=== PATIENT | female | born 1955 | race Caucasian/White ===

== ENCOUNTER 2018-11-17 05:55 | Emergency (ER) | payer MEDICAID ==
[~2018-11-17] VITALS: Ht 172.7 cm; Wt 94.8 kg
[2018-11-17 06:05] VITALS: BP_SYST 151
[2018-11-17] MEDS ORDERED: NACL 0.9% 1,000 ML IV ONE (06:15)
[2018-11-17] MEDS ORDERED: KETOROLAC TROMETHAMINE 30 MG VIAL IVP ONE (06:30)
[2018-11-17] MEDS ORDERED: ONDANSETRON HCL 4 MG/2 ML VIAL IVP ONE (06:30)
[2018-11-17 07:11] LABS: CALCIUM 9.7 mg/dL (8.4-11.0); CREATININE 0.9 mg/dL (0.55-1.30); POTASSIUM 3.4 mmol/L (3.5-5.1)
[2018-11-17 07:15] LABS: EOSINOPHILS % (AUTO) 0.8 % (0.0-4.0); HEMATOCRIT 43.4 % (36-48); HEMOGLOBIN 14.9 g/dL (12.0-16.0); LYMPHOCYTES % (AUTO) 30.6 % (20.5-51.5); MEAN CORPUSCULAR HEMOGLOBIN 30 pg (27-31); MEAN CORPUSCULAR HGB CONC 34 % (32-36); MEAN CORPUSCULAR VOLUME 86 fL (79.0-98.0); PLATELET COUNT (AUTO) 174 K/uL (130-430); RED BLOOD CELL COUNT(AUTO) 5.03 MIL/uL (4.2-6.2); RED CELL DISTRIBUTION WIDTH 14.5 % (9.0-15.0); WHITE BLOOD COUNT (AUTO) 5.4 K/uL (4.8-10.8)
[2018-11-17 07:16] LABS: BASOPHILS % (AUTO) 0.6 % (0.0-2.0); LYMPHOCYTES # (AUTO) 1.7 K/uL (1.0-5.5); MONOCYTES # (AUTO) 0.5 K/uL (0.0-1.0); NEUTROPHILS # (AUTO) 3.1 K/uL (1.8-7.7)
[2018-11-17 07:22] LABS: ALBUMIN 3.9 g/dL (3.4-4.8); TOTAL BILIRUBIN 1.8 mg/dL (0.0-1.0)
[2018-11-17 08:00] VITALS: BP_SYST 148
== END 2018-11-17 08:00 | disposition home or self-care (01) ==
LOC: SED 05:55
DX: K59.00 Constipation, unspecified (principal); E11.9 Type 2 diabetes mellitus without complications; I10 Essential (primary) hypertension
CPT/HCPCS: 36415; 74018; 80053; 85025; 96361; 96374; 96375; 99284; J1885; J2405; J7030

== ENCOUNTER 2018-11-19 09:01 | Emergency (ER) | payer MEDICAID ==
[~2018-11-19] VITALS: Ht 172.7 cm; Wt 92.5 kg
[2018-11-19 09:05] VITALS: BP_SYST 138
[2018-11-19] MEDS ORDERED: NACL 0.9% 1,000 ML IV ONE (09:45)
[2018-11-19] MEDS ORDERED: MINERAL OIL 133 ML ENEMA RC ONE (10:00)
[2018-11-19 10:03] LABS: HEMATOCRIT 44.1 % (36-48); MEAN CORPUSCULAR HEMOGLOBIN 29 pg (27-31); MEAN CORPUSCULAR HGB CONC 34 % (32-36); MEAN CORPUSCULAR VOLUME 86 fL (79.0-98.0); RED BLOOD CELL COUNT(AUTO) 5.13 MIL/uL (4.2-6.2)
[2018-11-19 10:04] LABS: BASOPHILS % (AUTO) 0.8 % (0.0-2.0); EOSINOPHILS % (AUTO) 0.4 % (0.0-4.0); LYMPHOCYTES % (AUTO) 16.6 % (20.5-51.5); MONOCYTES # (AUTO) 0.5 K/uL (0.0-1.0); MONOCYTES % (AUTO) 9.1 % (1.7-9.3); NEUTROPHILS # (AUTO) 4.4 K/uL (1.8-7.7); NEUTROPHILS % (AUTO) 73.1 % (40.0-70.0); PLATELET COUNT (AUTO) 180 K/uL (130-430); RED CELL DISTRIBUTION WIDTH 14.1 % (9.0-15.0)
[2018-11-19 10:09] LABS: CALCIUM 9.6 mg/dL (8.4-11.0); CREATININE 0.84 mg/dL (0.55-1.30); POTASSIUM 3.3 mmol/L (3.5-5.1)
[2018-11-19 10:14] LABS: ALBUMIN 3.7 g/dL (3.4-4.8)
[2018-11-19 10:37] LABS: BILIRUBIN,URINE 2+ (NEGATIVE); BLOOD, URINE 3+ (NEGATIVE); CLARITY/URINE CLEAR (CLEAR); COLOR,URINE AMBER (YELLOW); GLUCOSE,URINE NEGATIVE (NEGATIVE); KETONES,URINE 2+ (NEGATIVE); LEUKOCYTE ESTERASE ,URINE NEGATIVE (NEGATIVE); NITRITE, URINE NEGATIVE (NEGATIVE); PH,URINE 5.5 (5.0-8.0); PROTEIN URINE 1+ (NEGATIVE)
[2018-11-19 11:04] LABS: BACTERIA,URINE FEW /HPF (None Seen); RBC,URINE 20-50 /HPF (0-3); WBC,URINE 0-3 /HPF (0-3)
[2018-11-19 11:09] LABS: MUCUS,URINE 1+ /LPF (None Seen)
[2018-11-19] MEDS ORDERED: MAGNESIUM CITRATE 300 ML ORAL SOLUTION PO ONE (12:15)
[2018-11-19 12:36] VITALS: BP_SYST 119
== END 2018-11-19 12:35 | disposition home or self-care (01) ==
LOC: SED 09:01
DX: K59.00 Constipation, unspecified (principal); E11.9 Type 2 diabetes mellitus without complications; I10 Essential (primary) hypertension
CPT/HCPCS: 36415; 74018; 74176; 80053; 81000; 82962; 85025; 99284; J7030

== ENCOUNTER 2018-12-04 19:48 | Emergency (ER) | payer MEDICAID ==
[~2018-12-04] VITALS: Ht 172.7 cm; Wt 85.7 kg
[2018-12-04 19:55] VITALS: BP_SYST 142
[2018-12-04 21:31] LABS: BASOPHILS # (AUTO) 0.1 K/uL (0.0-0.2); EOSINOPHILS % (AUTO) 0.6 % (0.0-4.0); HEMATOCRIT 42.4 % (36-48); HEMOGLOBIN 14.6 g/dL (12.0-16.0); LYMPHOCYTES # (AUTO) 2.2 K/uL (1.0-5.5); LYMPHOCYTES % (AUTO) 33.1 % (20.5-51.5); MEAN CORPUSCULAR HEMOGLOBIN 30 pg (27-31); MEAN CORPUSCULAR HGB CONC 35 % (32-36); MEAN CORPUSCULAR VOLUME 87 fL (79.0-98.0); MONOCYTES # (AUTO) 0.8 K/uL (0.0-1.0); MONOCYTES % (AUTO) 11.8 % (1.7-9.3); NEUTROPHILS # (AUTO) 3.6 K/uL (1.8-7.7); NEUTROPHILS % (AUTO) 53.5 % (40.0-70.0); PLATELET COUNT (AUTO) 183 K/uL (130-430); RED BLOOD CELL COUNT(AUTO) 4.89 MIL/uL (4.2-6.2); WHITE BLOOD COUNT (AUTO) 6.8 K/uL (4.8-10.8)
[2018-12-04] MEDS ORDERED: MAGNESIUM CITRATE 300 ML ORAL SOLUTION PO ONE (21:45)
[2018-12-04] MEDS ORDERED: MINERAL OIL 133 ML ENEMA RC ONE (21:45)
[2018-12-04 21:53] LABS: CALCIUM 9.4 mg/dL (8.4-11.0); CREATININE 0.75 mg/dL (0.55-1.30); POTASSIUM 3.6 mmol/L (3.5-5.1)
[2018-12-04 21:59] LABS: ALBUMIN 3.7 g/dL (3.4-4.8); TOTAL BILIRUBIN 1.3 mg/dL (0.0-1.0)
[2018-12-04] MEDS ORDERED: NACL 0.9% 1,000 ML IV ONE (23:30)
[2018-12-05 00:38] VITALS: BP_SYST 138
== END 2018-12-05 00:38 | disposition home or self-care (01) ==
LOC: SED 19:48
DX: K59.00 Constipation, unspecified (principal); E11.9 Type 2 diabetes mellitus without complications; I10 Essential (primary) hypertension
CPT/HCPCS: 36415; 80053; 83690; 85025; 99283; J7030

== ENCOUNTER 2019-01-14 13:37 | Emergency (ER) | payer MEDICAID ==
[~2019-01-14] VITALS: Ht 172.7 cm; Wt 90.7 kg
[2019-01-14 13:37] VITALS: BP_SYST 128
[2019-01-14] MEDS ORDERED: NACL 0.9% 1,000 ML IV ONE (14:15)
[2019-01-14 15:17] LABS: BASOPHILS % (AUTO) 0.7 % (0.0-2.0); EOSINOPHILS % (AUTO) 0.1 % (0.0-4.0); HEMATOCRIT 46.4 % (36-48); HEMOGLOBIN 15.8 g/dL (12.0-16.0); LYMPHOCYTES % (AUTO) 16.2 % (20.5-51.5); MEAN CORPUSCULAR HEMOGLOBIN 30 pg (27-31); MEAN CORPUSCULAR HGB CONC 34 % (32-36); MEAN CORPUSCULAR VOLUME 89 fL (79.0-98.0); MONOCYTES # (AUTO) 0.5 K/uL (0.0-1.0); MONOCYTES % (AUTO) 8.6 % (1.7-9.3); NEUTROPHILS # (AUTO) 4.5 K/uL (1.8-7.7); NEUTROPHILS % (AUTO) 74.4 % (40.0-70.0); PLATELET COUNT (AUTO) 189 K/uL (130-430); RED BLOOD CELL COUNT(AUTO) 5.19 MIL/uL (4.2-6.2); RED CELL DISTRIBUTION WIDTH 15.1 % (9.0-15.0)
[2019-01-14 15:32] LABS: CALCIUM 10.1 mg/dL (8.4-11.0); CREATININE 1.41 mg/dL (0.55-1.30); POTASSIUM 3.1 mmol/L (3.5-5.1)
[2019-01-14 15:37] LABS: ALBUMIN 3.5 g/dL (3.4-4.8); TOTAL BILIRUBIN 2.1 mg/dL (0.0-1.0)
[2019-01-14] MEDS ORDERED: POTASSIUM CHLORIDE 10 MEQ TAB.PRT.SR PO ONE (15:45)
[2019-01-14 15:58] LABS: BILIRUBIN,URINE 2+ (NEGATIVE); BLOOD, URINE 3+ (NEGATIVE); CLARITY/URINE HAZY (CLEAR); COLOR,URINE YELLOW (YELLOW); GLUCOSE,URINE NEGATIVE (NEGATIVE); KETONES,URINE 1+ (NEGATIVE); LEUKOCYTE ESTERASE ,URINE 2+ (NEGATIVE); NITRITE, URINE NEGATIVE (NEGATIVE); PROTEIN URINE 1+ (NEGATIVE)
[2019-01-14] MEDS ORDERED: MAGNESIUM CITRATE 300 ML ORAL SOLUTION PO ONE (16:00)
[2019-01-14] MEDS ORDERED: PANTOPRAZOLE SODIUM 40 MG/VIAL (PROTONIX) IVP ONE (16:00)
[2019-01-14] MEDS ORDERED: LEVOFLOXACIN 500 MG/D5W 100 ML IV ONE (16:15)
[2019-01-14 16:24] LABS: BACTERIA,URINE MODERATE /HPF (None Seen); RBC,URINE 20-50 /HPF (0-3)
[2019-01-14 17:09] VITALS: BP_SYST 131
== END 2019-01-14 17:09 | disposition home or self-care (01) ==
LOC: SED 13:37
DX: K29.70 Gastritis, unspecified, without bleeding (principal); N39.0 Urinary tract infection, site not specified; K59.00 Constipation, unspecified; E11.9 Type 2 diabetes mellitus without complications; I10 Essential (primary) hypertension; Z90.49 Acquired absence of other specified parts of digestive tract
CPT/HCPCS: 36415; 74021; 80053; 81000; 85025; 87086; 87186; 96361; 96365; 96375; 99284; C9113; J1956; J7030

== ENCOUNTER 2019-02-09 09:29 | Emergency (ER) | payer MEDICAID ==
[~2019-02-09] VITALS: Ht 172.7 cm; Wt 77.1 kg
[2019-02-09 09:30] VITALS: BP_SYST 124
--- NOTE | 2019-02-09 09:35 | NUR ---
Note thomas in EDM - 02/09/19 at 1001 by CHET Patient is awake, alert, and oriented x4. She is complaining of productive cough since this morning. Patient called earlier stating that she was going in to a coma and she had a poc glucose reading of 19, paramedics did one in the field showing 119 blood sugar.
--- NOTE | 2019-02-09 09:36 | NUR ---
Arrived via [facility] ambulance with C/O cough, burning in throat, constipation. Patient called 911 due to BS 19 on accucheck. EMS had BS 113. Patient is slow to repond though responses are appropriete. Placed in room 2. Placed on director of cardiac cath lab, blood pressure machine and pulse oximeter. To gown for exam. Side rails up. Report given to Yasir THOMASON.
--- NOTE | 2019-02-09 09:45 | NUR ---
ER Dr. Morgan at bedside examining patient.
[2019-02-09] MEDS ORDERED: NACL 0.9% 1,000 ML IV ONE ×2 (10:00→11:30)
[2019-02-09] MEDS ORDERED: KETOROLAC TROMETHAMINE 30 MG VIAL IVP ONE (10:00)
[2019-02-09 10:20] LABS: CALCIUM 9.9 mg/dL (8.4-11.0); CREATININE 1.09 mg/dL (0.55-1.30)
--- NOTE | 2019-02-09 10:22 | NUR ---
# 16 FR Cruz catheter with use of sterile technique. Immediate return of 10 cc yellow urine noted. Bedside drainage bag placed below level of bladder. Urine sample unable to be collected at this time, Dr. Morgan made aware. Pt tolerated procedure well. Patient arrived with cruz in place, changed due to standard of practice prior to admission. Patient unable to toilet self.
[2019-02-09 10:23] LABS: BASOPHILS # (AUTO) 0.1 K/uL (0.0-0.2); BASOPHILS % (AUTO) 1.1 % (0.0-2.0); EOSINOPHILS % (AUTO) 0.2 % (0.0-4.0); HEMATOCRIT 45.4 % (36-48); HEMOGLOBIN 15.3 g/dL (12.0-16.0); LYMPHOCYTES # (AUTO) 1.2 K/uL (1.0-5.5); LYMPHOCYTES % (AUTO) 21.2 % (20.5-51.5); MEAN CORPUSCULAR HEMOGLOBIN 31 pg (27-31); MEAN CORPUSCULAR HGB CONC 34 % (32-36); MEAN CORPUSCULAR VOLUME 92 fL (79.0-98.0); MONOCYTES # (AUTO) 0.5 K/uL (0.0-1.0); MONOCYTES % (AUTO) 8.7 % (1.7-9.3); NEUTROPHILS # (AUTO) 3.9 K/uL (1.8-7.7); NEUTROPHILS % (AUTO) 68.8 % (40.0-70.0); PLATELET COUNT (AUTO) 257 K/uL (130-430); RED BLOOD CELL COUNT(AUTO) 4.95 MIL/uL (4.2-6.2); RED CELL DISTRIBUTION WIDTH 14.7 % (9.0-15.0); WHITE BLOOD COUNT (AUTO) 5.6 K/uL (4.8-10.8)
[2019-02-09 10:25] LABS: ALBUMIN 3.6 g/dL (3.4-4.8); TOTAL BILIRUBIN 1.9 mg/dL (0.0-1.0)
[2019-02-09 10:39] LABS: POTASSIUM 3.3 mmol/L (3.5-5.1)
[2019-02-09] MEDS ORDERED: RAMI10CA32 PO (10:49)
[2019-02-09] MEDS ORDERED: INSU100I26 SQ (10:49)
[2019-02-09] MEDS ORDERED: OMEP40CA33 PO (10:49)
--- NOTE | 2019-02-09 10:49 | NUR ---
Medication reconciliation completed with information provided by [facility] pharmacy. Any prior medication reconciliation on file was reviewed and corrected.
[2019-02-09 12:24] LABS: BILIRUBIN,URINE 1+ (NEGATIVE); CLARITY/URINE CLEAR (CLEAR); COLOR,URINE YELLOW (YELLOW); GLUCOSE,URINE NEGATIVE (NEGATIVE); KETONES,URINE 3+ (NEGATIVE); LEUKOCYTE ESTERASE ,URINE NEGATIVE (NEGATIVE); NITRITE, URINE NEGATIVE (NEGATIVE); PH,URINE 5.5 (5.0-8.0); PROTEIN URINE TRACE (NEGATIVE); UROBILINOGEN,URINE 0.2 (0.2-1.0)
[2019-02-09 12:26] LABS: BLOOD, URINE TRACE (NEGATIVE)
[2019-02-09 12:35] LABS: BACTERIA,URINE FEW /HPF (None Seen); COARSE GRANULAR CASTS,URINE 0-10 /LPF (None Seen); FINE GRANULAR CASTS,URINE 0-10 /LPF (None Seen); RBC,URINE 0-3 /HPF (0-3)
[2019-02-09 12:36] LABS: MUCUS,URINE 1+ /LPF (None Seen)
--- NOTE | 2019-02-09 12:41 | NUR ---
Dr. Morgan at bedside talking to patient.
[2019-02-09 12:54] VITALS: BP_SYST 148
--- NOTE | 2019-02-09 12:55 | NUR ---
Patient given written and verbal discharge instructions and verbalizes understanding. ER MD discussed with patient the results and treatment provided. Patient in stable condition. ID arm band removed. IV catheter removed intact and dressing applied, no active bleeding. Rx of dulcolax, miralax given. Patient educated on pain management and to follow up with PMD. Pain Scale 0/10. Opportunity for questions provided and answered. Medication side effect fact sheet provided.
== END 2019-02-09 12:54 | disposition home or self-care (01) ==
LOC: SED 09:29
DX: E86.0 Dehydration (principal); K59.00 Constipation, unspecified; E11.9 Type 2 diabetes mellitus without complications; I10 Essential (primary) hypertension; Z79.899 Other long term (current) drug therapy
CPT/HCPCS: 36415; 51702; 74018; 80053; 81000; 82140; 83605; 83690; 84484; 85025; 87086; 93005; 96361; 96374; 99284; J1885; J7030

== ENCOUNTER 2019-02-12 10:45 | Inpatient (IN) | payer MEDICAID ==
[~2019-02-12] VITALS: Ht 175.3 cm; Wt 74.1 kg
[2019-02-12 10:45] VITALS: BP_SYST 114
[~2019-02-12 10:45] MED LIST: INSU100I26 SQ; OMEP40CA33 PO; RAMI10CA32 PO
[2019-02-12] MEDS ORDERED: NACL 0.9% 1,000 ML IV ONE (11:11)
[2019-02-12 11:34] LABS: BASOPHILS % (AUTO) 0.7 % (0.0-2.0); EOSINOPHILS % (AUTO) 0.1 % (0.0-4.0); HEMATOCRIT 43.7 % (36-48); HEMOGLOBIN 14.7 g/dL (12.0-16.0); LYMPHOCYTES # (AUTO) 1.3 K/uL (1.0-5.5); LYMPHOCYTES % (AUTO) 26.8 % (20.5-51.5); MEAN CORPUSCULAR HEMOGLOBIN 31 pg (27-31); MEAN CORPUSCULAR HGB CONC 34 % (32-36); MEAN CORPUSCULAR VOLUME 91 fL (79.0-98.0); MONOCYTES # (AUTO) 0.4 K/uL (0.0-1.0); MONOCYTES % (AUTO) 9.1 % (1.7-9.3); NEUTROPHILS # (AUTO) 3.1 K/uL (1.8-7.7); NEUTROPHILS % (AUTO) 63.3 % (40.0-70.0); PLATELET COUNT (AUTO) 236 K/uL (130-430); RED CELL DISTRIBUTION WIDTH 14.9 % (9.0-15.0); WHITE BLOOD COUNT (AUTO) 4.8 K/uL (4.8-10.8)
[2019-02-12 11:43] LABS: CALCIUM 9.7 mg/dL (8.4-11.0); CREATININE 1.03 mg/dL (0.55-1.30)
[2019-02-12 11:48] LABS: ALBUMIN 3.1 g/dL (3.4-4.8); TOTAL BILIRUBIN 1.6 mg/dL (0.0-1.0)
[2019-02-12 12:00] LABS: POTASSIUM 2.7 mmol/L (3.5-5.1)
[2019-02-12] MEDS ORDERED: KCL 20 mEq in 100 mL (PREMIX) 100 ML IV ONE ×2 (13:30→22:15)
[2019-02-12 13:37] LABS: BILIRUBIN,URINE 2+ (NEGATIVE); BLOOD, URINE 3+ (NEGATIVE); CLARITY/URINE CLEAR (CLEAR); COLOR,URINE YELLOW (YELLOW); GLUCOSE,URINE NEGATIVE (NEGATIVE); KETONES,URINE 3+ (NEGATIVE); LEUKOCYTE ESTERASE ,URINE NEGATIVE (NEGATIVE); NITRITE, URINE NEGATIVE (NEGATIVE); PROTEIN URINE 1+ (NEGATIVE)
[2019-02-12 13:51] LABS: BACTERIA,URINE FEW /HPF (None Seen); WBC,URINE 0-3 /HPF (0-3)
[2019-02-12 13:52] LABS: FINE GRANULAR CASTS,URINE 0-10 /LPF (None Seen); HYALINE CASTS, URINE 0-10 /LPF (None Seen); MUCUS,URINE 1+ /LPF (None Seen)
[2019-02-12] MEDS ORDERED: ONDANSETRON HCL 4 MG/2 ML VIAL IVP ONE (15:00)
[2019-02-12 15:30] LABS: CALCIUM 8.6 mg/dL (8.4-11.0); CREATININE 0.91 mg/dL (0.55-1.30)
[2019-02-12 15:36] LABS: ALBUMIN 2.8 g/dL (3.4-4.8); TOTAL BILIRUBIN 1.3 mg/dL (0.0-1.0)
[2019-02-12] MEDS ORDERED: POTASSIUM CHLORIDE 20 MEQ/PKT PACKET PO ONE (18:00)
[2019-02-12] MEDS ORDERED: MAG HYDROX/AL HYDROX/SIMETH 30 ML, DICYCLOMINE HCL 20 MG, LIDOCAINE VISCOUS 2% 15ML (PO... PO ONE ×3 (18:00)
[2019-02-12 18:50] VITALS: BP_SYST 137
[2019-02-12] MEDS ORDERED: NACL 0.9% 1,000 ML IV SCH (18:50)
[2019-02-12] MEDS ORDERED: ALBUTEROL SULFATE 0.083% 2.5 MG/3 ML VIAL.NEB INH PRN (19:00)
[2019-02-12] MEDS ORDERED: HYDROcodone/ACETAMIN 5-325 MG TAB (NORCO/ VICODIN) PO PRN (19:00)
[2019-02-12] MEDS ORDERED: INSULIN ASPART 100 UNITS/ML, 10 ML VIAL (NovoLOG) SUBCUT PRN (19:00)
[2019-02-12] MEDS ORDERED: HYDROcodone/ACETAMIN 10-325 MG TAB PO PRN (19:00)
[2019-02-12] MEDS ORDERED: ONDANSETRON HCL 4 MG/2 ML VIAL IVP PRN (19:00)
[2019-02-12] MEDS ORDERED: POLYETHYLENE GLYCOL 3350, 17 GM/ POWD.PACK PO ONE (19:15)
[2019-02-12] MEDS ORDERED: DEXTROSE 50%-WATER 50 ML DISP.SYRIN IVP PRN (19:30)
[2019-02-12] MEDS ORDERED: GLUCOSE 15 GM GEL (in 37.5 GM TUBE) PO PRN (19:30)
[2019-02-12] MEDS ORDERED: D5W 1,000 ML IV PRN (19:30)
[2019-02-12 20:00] VITALS: BP_SYST 152
[2019-02-12 20:35] VITALS: BP_SYST 152
[2019-02-12] MEDS: cefTRIAXone 1 GM IVPB PREMIX 50 ML IV SCH (20:37)
[2019-02-12] MEDS: BISACODYL 10 MG/SUPPOSITORY RC PRN (23:36)
[2019-02-12] MEDS ORDERED: NS IV ONE (23:37)
[2019-02-12] MEDS ORDERED: KCL IV ONE (23:37)
[2019-02-12] MEDS ORDERED: KCL 20 mEq in D5NS 1000 mL 1,000 ML IV ONE (23:41)
[2019-02-13 01:36] VITALS: BP_SYST 159
[2019-02-13] MEDS: KCL 20 mEq in D5NS 1000 mL 1,000 ML IV SCH ×3 (03:32→17:12)
[2019-02-13] MEDS: INSULIN LISPRO SLIDING SCALE 100 UNITS/ML VIAL (humaLOG) SUBCUT PRN (05:38)
[2019-02-13 07:02] LABS: BASOPHILS % (AUTO) 0.7 % (0.0-2.0); EOSINOPHILS % (AUTO) 0.3 % (0.0-4.0); HEMATOCRIT 41.8 % (36-48); HEMOGLOBIN 14.1 g/dL (12.0-16.0); LYMPHOCYTES # (AUTO) 1.4 K/uL (1.0-5.5); LYMPHOCYTES % (AUTO) 32.8 % (20.5-51.5); MEAN CORPUSCULAR HEMOGLOBIN 31 pg (27-31); MEAN CORPUSCULAR HGB CONC 34 % (32-36); MEAN CORPUSCULAR VOLUME 91 fL (79.0-98.0); MONOCYTES # (AUTO) 0.5 K/uL (0.0-1.0); MONOCYTES % (AUTO) 10.5 % (1.7-9.3); NEUTROPHILS # (AUTO) 2.5 K/uL (1.8-7.7); NEUTROPHILS % (AUTO) 55.7 % (40.0-70.0); PLATELET COUNT (AUTO) 214 K/uL (130-430); RED CELL DISTRIBUTION WIDTH 15.2 % (9.0-15.0); WHITE BLOOD COUNT (AUTO) 4.4 K/uL (4.8-10.8)
[2019-02-13 07:09] LABS: CALCIUM 8.7 mg/dL (8.4-11.0); CREATININE 0.87 mg/dL (0.55-1.30)
[2019-02-13 07:18] LABS: ALBUMIN 2.9 g/dL (3.4-4.8); TOTAL BILIRUBIN 1.3 mg/dL (0.0-1.0)
[2019-02-13] MEDS: POTASSIUM CHLORIDE 20 MEQ TAB.PRT.SR PO SCH ×2 (08:15→11:45)
[2019-02-13 08:43] VITALS: BP_SYST 162
[2019-02-13] MEDS: LISINOPRIL 20 MG TABLET PO SCH (08:45)
[2019-02-13] MEDS: OMEPRAZOLE 20 MG CAPSULE.DR (PriLOSEC) PO SCH (08:50)
[2019-02-13] MEDS ORDERED: RAMIPRIL 5 MG CAPSULE PO SCH (09:00)
[2019-02-13] MEDS ORDERED: POLYETHYLENE GLYCOL 3350, 17 GM/ POWD.PACK PO SCH (09:00)
[2019-02-13 12:20] VITALS: BP_SYST 145
[2019-02-13 16:33] VITALS: BP_SYST 164
[2019-02-13 19:00] VITALS: BP_SYST 133
[2019-02-13 20:00] VITALS: BP_SYST 133
[2019-02-13] MEDS: cefTRIAXone 1 GM IVPB PREMIX 50 ML IV SCH (20:21)
[2019-02-13] MEDS ORDERED: MORPHINE 2 MG/ML INJ. SYRINGE IVP ONE (21:15)
[2019-02-13] MEDS: METOCLOPRAMIDE HCL 10 MG/2 ML VIAL IVP PRN (22:33)
[2019-02-14 01:15] VITALS: BP_SYST 152
[2019-02-14] MEDS: METOCLOPRAMIDE HCL 10 MG/2 ML VIAL IVP PRN ×2 (04:24→22:12)
[2019-02-14] MEDS: KCL 20 mEq in D5NS 1000 mL 1,000 ML IV SCH ×2 (04:24→17:05)
[2019-02-14 07:35] LABS: CALCIUM 8.6 mg/dL (8.4-11.0); CREATININE 0.69 mg/dL (0.55-1.30)
[2019-02-14 07:45] LABS: POTASSIUM 2.5 mmol/L (3.5-5.1)
[2019-02-14 07:55] VITALS: BP_SYST 147
[2019-02-14] MEDS ORDERED: POTASSIUM CHLORIDE 20 MEQ/PKT PACKET PO ONE (08:45)
[2019-02-14] MEDS ORDERED: KCL 20 mEq in 100 mL (PREMIX) 200 ML IV ONE (08:45)
[2019-02-14] MEDS ORDERED: METOCLOPRAMIDE HCL 10 MG/2 ML VIAL IVP ONE (09:30)
[2019-02-14] MEDS: OMEPRAZOLE 20 MG CAPSULE.DR (PriLOSEC) PO SCH (09:46)
[2019-02-14] MEDS: LISINOPRIL 20 MG TABLET PO SCH (09:46)
[2019-02-14 11:32] VITALS: BP_SYST 133
[2019-02-14 15:28] VITALS: BP_SYST 158
[2019-02-14 16:48] LABS: BILIRUBIN,URINE NEGATIVE (NEGATIVE); CLARITY/URINE CLEAR (CLEAR); COLOR,URINE YELLOW (YELLOW); GLUCOSE,URINE TRACE (NEGATIVE); KETONES,URINE NEGATIVE (NEGATIVE); LEUKOCYTE ESTERASE ,URINE NEGATIVE (NEGATIVE); NITRITE, URINE NEGATIVE (NEGATIVE); PROTEIN URINE NEGATIVE (NEGATIVE); UROBILINOGEN,URINE 0.2 (0.2-1.0)
[2019-02-14 16:49] LABS: BLOOD, URINE TRACE (NEGATIVE)
[2019-02-14 17:01] LABS: BACTERIA,URINE RARE /HPF (None Seen); MUCUS,URINE None Seen /LPF (None Seen); WBC,URINE 0-3 /HPF (0-3)
[2019-02-14 20:32] VITALS: BP_SYST 156
[2019-02-14] MEDS: cefTRIAXone 1 GM IVPB PREMIX 50 ML IV SCH (20:42)
[2019-02-15 00:09] VITALS: BP_SYST 127
[2019-02-15] MEDS: KCL 20 mEq in D5NS 1000 mL 1,000 ML IV SCH ×3 (06:17→21:46)
[2019-02-15 07:11] LABS: BASOPHILS % (AUTO) 0.7 % (0.0-2.0); EOSINOPHILS % (AUTO) 0.8 % (0.0-4.0); HEMATOCRIT 40.3 % (36-48); LYMPHOCYTES % (AUTO) 38.3 % (20.5-51.5); MEAN CORPUSCULAR HEMOGLOBIN 31 pg (27-31); MEAN CORPUSCULAR HGB CONC 35 % (32-36); MEAN CORPUSCULAR VOLUME 89 fL (79.0-98.0); MONOCYTES # (AUTO) 0.6 K/uL (0.0-1.0); MONOCYTES % (AUTO) 11.4 % (1.7-9.3); NEUTROPHILS # (AUTO) 2.6 K/uL (1.8-7.7); NEUTROPHILS % (AUTO) 48.8 % (40.0-70.0); PLATELET COUNT (AUTO) 179 K/uL (130-430); RED BLOOD CELL COUNT(AUTO) 4.54 MIL/uL (4.2-6.2); RED CELL DISTRIBUTION WIDTH 14.5 % (9.0-15.0); WHITE BLOOD COUNT (AUTO) 5.3 K/uL (4.8-10.8)
[2019-02-15 07:45] VITALS: BP_SYST 151
[2019-02-15 08:37] LABS: ALBUMIN 2.9 g/dL (3.4-4.8); CALCIUM 8.8 mg/dL (8.4-11.0); CREATININE 0.71 mg/dL (0.55-1.30); TOTAL BILIRUBIN 1.3 mg/dL (0.0-1.0)
[2019-02-15] MEDS: LISINOPRIL 20 MG TABLET PO SCH (09:00)
[2019-02-15] MEDS: OMEPRAZOLE 20 MG CAPSULE.DR (PriLOSEC) PO SCH (09:00)
[2019-02-15 10:02] LABS: POTASSIUM 2.5 mmol/L (3.5-5.1)
[2019-02-15] MEDS: METOCLOPRAMIDE HCL 10 MG/2 ML VIAL IVP PRN ×2 (10:17→18:22)
[2019-02-15] MEDS: KCL 20 mEq in 100 mL (PREMIX) 100 ML IV SCH ×4 (11:06→18:22)
[2019-02-15] MEDS: INSULIN LISPRO SLIDING SCALE 100 UNITS/ML VIAL (humaLOG) SUBCUT PRN (11:44)
[2019-02-15 11:51] VITALS: BP_SYST 159
[2019-02-15 15:25] VITALS: BP_SYST 144
[2019-02-15 19:50] VITALS: BP_SYST 154
[2019-02-15] MEDS: cefTRIAXone 1 GM IVPB PREMIX 50 ML IV SCH (20:04)
[2019-02-15 21:52] LABS: CALCIUM 8.6 mg/dL (8.4-11.0); CREATININE 0.57 mg/dL (0.55-1.30); POTASSIUM 3.6 mmol/L (3.5-5.1)
[2019-02-15] MEDS: SIMETHICONE 80 MG TAB.CHEW PO PRN (22:57)
[2019-02-16 00:38] VITALS: BP_SYST 147
[2019-02-16 05:51] LABS: ALBUMIN 2.8 g/dL (3.4-4.8); CALCIUM 8.6 mg/dL (8.4-11.0); CREATININE 0.61 mg/dL (0.55-1.30); POTASSIUM 3.1 mmol/L (3.5-5.1); TOTAL BILIRUBIN 1.2 mg/dL (0.0-1.0)
[2019-02-16] MEDS: KCL 20 mEq in D5NS 1000 mL 1,000 ML IV SCH ×3 (06:40→23:21)
[2019-02-16] MEDS ORDERED: POTASSIUM CHLORIDE 40 MEQ in NS 250 ML IV ONE (06:45)
[2019-02-16] MEDS: INSULIN LISPRO SLIDING SCALE 100 UNITS/ML VIAL (humaLOG) SUBCUT PRN (06:46)
[2019-02-16 08:00] VITALS: BP_SYST 140
[2019-02-16] MEDS: LISINOPRIL 20 MG TABLET PO SCH (09:00)
[2019-02-16] MEDS: OMEPRAZOLE 20 MG CAPSULE.DR (PriLOSEC) PO SCH (09:00)
[2019-02-16 11:27] VITALS: BP_SYST 148
[2019-02-16] MEDS ORDERED: MEPERIDINE HCL/PF 100 MG/ML AMP ONE (11:35)
[2019-02-16] MEDS ORDERED: MIDAZOLAM HCL 5 MG/5 ML VIAL ONE ×2 (11:36)
[2019-02-16] MEDS ORDERED: SIMETHICONE 40 MG/0.6 ML ML ONE (12:17)
[2019-02-16 15:31] VITALS: BP_SYST 119
[2019-02-16] MEDS: cefTRIAXone 1 GM IVPB PREMIX 50 ML IV SCH (23:11)
[2019-02-16] MEDS: ONDANSETRON HCL 4 MG/2 ML VIAL IVP PRN (23:39)
[2019-02-17 00:48] VITALS: BP_SYST 139
[2019-02-17] MEDS: ONDANSETRON HCL 4 MG/2 ML VIAL IVP PRN ×2 (04:44→16:23)
[2019-02-17 06:34] LABS: BASOPHILS % (AUTO) 0.9 % (0.0-2.0); EOSINOPHILS % (AUTO) 0.7 % (0.0-4.0); HEMATOCRIT 41.3 % (36-48); LYMPHOCYTES # (AUTO) 1.6 K/uL (1.0-5.5); LYMPHOCYTES % (AUTO) 36.7 % (20.5-51.5); MEAN CORPUSCULAR HEMOGLOBIN 31 pg (27-31); MEAN CORPUSCULAR HGB CONC 34 % (32-36); MEAN CORPUSCULAR VOLUME 90 fL (79.0-98.0); MONOCYTES # (AUTO) 0.6 K/uL (0.0-1.0); MONOCYTES % (AUTO) 13.1 % (1.7-9.3); NEUTROPHILS # (AUTO) 2.1 K/uL (1.8-7.7); NEUTROPHILS % (AUTO) 48.6 % (40.0-70.0); PLATELET COUNT (AUTO) 143 K/uL (130-430); RED BLOOD CELL COUNT(AUTO) 4.61 MIL/uL (4.2-6.2); RED CELL DISTRIBUTION WIDTH 14.4 % (9.0-15.0); WHITE BLOOD COUNT (AUTO) 4.4 K/uL (4.8-10.8)
[2019-02-17 06:49] LABS: ALBUMIN 2.7 g/dL (3.4-4.8); CALCIUM 8.7 mg/dL (8.4-11.0); CREATININE 0.65 mg/dL (0.55-1.30); POTASSIUM 3.8 mmol/L (3.5-5.1); TOTAL BILIRUBIN 1.1 mg/dL (0.0-1.0)
[2019-02-17 08:00] VITALS: BP_SYST 152
[2019-02-17] MEDS: SIMETHICONE 80 MG TAB.CHEW PO PRN ×3 (09:14→22:35)
[2019-02-17] MEDS: LISINOPRIL 20 MG TABLET PO SCH (09:15)
[2019-02-17] MEDS: METOCLOPRAMIDE HCL 10 MG/2 ML VIAL IVP PRN ×2 (09:16→21:49)
[2019-02-17] MEDS ORDERED: PANTOPRAZOLE SODIUM 40 MG/VIAL (PROTONIX) IVP ONE (09:30)
[2019-02-17] MEDS: KCL 20 mEq in D5NS 1000 mL 1,000 ML IV SCH ×2 (09:31→18:40)
[2019-02-17 12:33] VITALS: BP_SYST 135
[2019-02-17] MEDS: INSULIN LISPRO SLIDING SCALE 100 UNITS/ML VIAL (humaLOG) SUBCUT PRN (12:35)
[2019-02-17] MEDS: BISACODYL 10 MG/SUPPOSITORY RC PRN (13:17)
[2019-02-17 16:48] VITALS: BP_SYST 137
[2019-02-17] MEDS: cefTRIAXone 1 GM IVPB PREMIX 50 ML IV SCH (18:40)
[2019-02-17 20:00] VITALS: BP_SYST 151
[2019-02-18 01:21] VITALS: BP_SYST 153
[2019-02-18] MEDS: ONDANSETRON HCL 4 MG/2 ML VIAL IVP PRN ×4 (03:25→23:21)
[2019-02-18] MEDS: SIMETHICONE 80 MG TAB.CHEW PO PRN ×3 (03:25→21:24)
[2019-02-18] MEDS: KCL 20 mEq in D5NS 1000 mL 1,000 ML IV SCH ×2 (03:26→15:17)
[2019-02-18 08:00] VITALS: BP_SYST 129
[2019-02-18] MEDS: LISINOPRIL 20 MG TABLET PO SCH (08:52)
[2019-02-18] MEDS: PANTOPRAZOLE SODIUM 40 MG/VIAL (PROTONIX) IVP SCH (08:53)
[2019-02-18] MEDS: INSULIN LISPRO SLIDING SCALE 100 UNITS/ML VIAL (humaLOG) SUBCUT PRN (11:29)
[2019-02-18 12:43] VITALS: BP_SYST 137
[2019-02-18] MEDS ORDERED: METOCLOPRAMIDE HCL 10 MG TABLET PO PRN (15:45)
[2019-02-18] MEDS ORDERED: POLYETHYLENE GLYCOL 3350, 17 GM/ POWD.PACK PO ONE (15:45)
[2019-02-18 16:30] VITALS: BP_SYST 135
[2019-02-18] MEDS: cefTRIAXone 1 GM IVPB PREMIX 50 ML IV SCH (18:42)
[2019-02-18 19:33] VITALS: BP_SYST 142
[2019-02-18 23:51] VITALS: BP_SYST 147
[2019-02-19] MEDS: KCL 20 mEq in D5NS 1000 mL 1,000 ML IV SCH ×2 (01:56→13:26)
[2019-02-19] MEDS: ONDANSETRON HCL 4 MG/2 ML VIAL IVP PRN ×2 (05:32→21:10)
[2019-02-19 08:00] VITALS: BP_SYST 157
[2019-02-19] MEDS: PANTOPRAZOLE SODIUM 40 MG/VIAL (PROTONIX) IVP SCH (09:00)
[2019-02-19] MEDS: POLYETHYLENE GLYCOL 3350, 17 GM/ POWD.PACK PO SCH (09:01)
[2019-02-19] MEDS: LISINOPRIL 20 MG TABLET PO SCH (09:02)
[2019-02-19] MEDS: BISACODYL 10 MG/SUPPOSITORY RC PRN (09:14)
[2019-02-19 11:31] VITALS: BP_SYST 140
[2019-02-19] MEDS: INSULIN LISPRO SLIDING SCALE 100 UNITS/ML VIAL (humaLOG) SUBCUT PRN (11:59)
[2019-02-19 15:44] VITALS: BP_SYST 149
[2019-02-19 20:16] VITALS: BP_SYST 138
[2019-02-20 00:14] VITALS: BP_SYST 141
[2019-02-20] MEDS: KCL 20 mEq in D5NS 1000 mL 1,000 ML IV SCH ×2 (01:19→12:09)
[2019-02-20 08:05] VITALS: BP_SYST 151
[2019-02-20] MEDS: PANTOPRAZOLE SODIUM 40 MG/VIAL (PROTONIX) IVP SCH (09:32)
[2019-02-20] MEDS: LISINOPRIL 20 MG TABLET PO SCH (09:33)
[2019-02-20] MEDS: POLYETHYLENE GLYCOL 3350, 17 GM/ POWD.PACK PO SCH (09:34)
[2019-02-20] MEDS: METOCLOPRAMIDE HCL 10 MG TABLET PO SCH ×2 (11:30→17:00)
[2019-02-20 12:20] VITALS: BP_SYST 124
[2019-02-20] MEDS: ONDANSETRON HCL 4 MG/2 ML VIAL IVP PRN (16:43)
[2019-02-20 18:11] VITALS: BP_SYST 124
[2019-02-21] MEDS ORDERED: DULoxetine HCL 30 MG CAPSULE.DR (CYMBALTA) PO SCH (09:00)
== END 2019-02-20 19:40 | DRG 48 ==
LOC: SED 10:45 → STU 17:49 → SMU 02-13 10:11
PROVIDERS: ADMIT Internal Medicine; ATTEND Internal Medicine
PROC: 0DB68ZX Excision of Stomach, Via Natural or Artificial Opening Endoscopic, Diagnostic (ICD-10-PCS; 2019-02-16)
PROC: 0DB98ZX Excision of Duodenum, Via Natural or Artificial Opening Endoscopic, Diagnostic (ICD-10-PCS; principal; 2019-02-16 15:00)
DX: E11.43 Type 2 diabetes mellitus with diabetic autonomic (poly)neuropathy (principal); E44.0 Moderate protein-calorie malnutrition; K31.84 Gastroparesis; K29.70 Gastritis, unspecified, without bleeding; B19.20 Unspecified viral hepatitis C without hepatic coma; E87.6 Hypokalemia; E86.0 Dehydration; K44.9 Diaphragmatic hernia without obstruction or gangrene; E11.9 Type 2 diabetes mellitus without complications; I10 Essential (primary) hypertension; K59.09 Other constipation; F32.9 Major depressive disorder, single episode, unspecified; Z83.3 Family history of diabetes mellitus; Z79.899 Other long term (current) drug therapy; Z79.4 Long term (current) use of insulin
CPT/HCPCS: 36415; 43239; 74021; 80048; 80053; 81000-TC; 82962; 83605; 83690-TC; 83735-TC; 84484; 85025; 87081; 88305; 88312; 88313; 94760; 96361; 96365; 96366; 96375; 97110-GP; 97116-GP; 97530-GP; 99285; C9113; G0378; J0696; J2001; J2175; J2250; J2405; J2765; J3480; J7030; J7050